=== PATIENT | male | born 1955 | race Caucasian/White ===

== ENCOUNTER → 2017-03-02 | Outpatient (REF) | payer BC ==
[2017-03-04 00:06] LABS: Lyme Disease IgG/IgM Antibodie <0.91 ISR (0.00-0.90); Lyme Disease IgM Ab Quantitati <0.80 index (0.00-0.79)
== END ==
LOC: M LAB REF 13:37
PROVIDERS: ATTEND Internal Medicine
DX: M25.50 Pain in unspecified joint (principal)

== ENCOUNTER 2017-03-21 11:43 | Outpatient (CLI) | payer BC ==
[~2017-03-21] VITALS: Ht 172.7 cm; Wt 74.8 kg
[2017-03-21] MEDS ORDERED: NS 1,000 ML IV ONE (12:00)
[2017-03-21] MEDS ORDERED: LIDOCAINE 2% INJ 100 MG/5 ML SDV (FOR ANES.) As Ordered ONE (12:37)
[2017-03-21] MEDS ORDERED: PROPOFOL 500 MG/50 ML VIAL As Ordered ONE (12:38)
[2017-03-21] MEDS ORDERED: PROPOFOL 200 MG/20 ML VIAL As Ordered ONE ×2 (12:38→13:39)
--- NOTE | 2017-03-21 13:26 | ROOR ---
Patient Name: Avinash Rucker Procedure Date: 03/21/2017 12:37 PM Date of : 1955 Age: 62 Room: [facility] Gender: Male Note Status: Finalized Procedure: Total Colonoscopy to Cecum + Cold + Hot Snare Polypectomy + Hemoclips Indications: Screening for colorectal malignant neoplasm Providers: Elmer Carr MD Referring MD: Carmela Ng DO Requesting Provider: Medicines: Monitored Anesthesia Care Complications: No immediate complications. Procedure: Pre-Anesthesia Assessment: - The heart rate, respiratory rate, oxygen saturations, blood pressure, adequacy of pulmonary ventilation, and response to care were monitored throughout the procedure. The Colonoscope was introduced through the anus and advanced to the cecum, identified by appendiceal orifice and ileocecal valve. The colonoscopy was performed without difficulty. The patient tolerated the procedure well. The quality of the bowel preparation was good. Findings: The perianal and digital rectal examinations were normal. Non-bleeding internal hemorrhoids were found during retroflexion. The hemorrhoids were small and Grade I (internal hemorrhoids that do not prolapse). Multiple small and large-mouthed diverticula were found in the recto-sigmoid colon, sigmoid colon and descending colon. A large polyp was found at 15 cm proximal to the anus. The polyp was pedunculated. The polyp was removed with a hot snare. Resection and retrieval were complete. To prevent bleeding after the polypectomy, two hemostatic clips were successfully placed (MR conditional). There was no bleeding at the end of the procedure. A medium polyp was found at 20 cm proximal to the anus. The polyp was sessile. The polyp was removed with a cold snare. Resection and retrieval were complete. To prevent bleeding after the polypectomy, one hemostatic clip was successfully placed (MR conditional). There was no bleeding at the end of the procedure. A medium polyp was found at 40 cm proximal to the anus. The polyp was sessile. The polyp was removed with a cold snare. Resection and retrieval were complete. Multiple sessile polyps were found in the transverse colon. The polyps were small in size. These polyps were removed with a cold snare. Resection and retrieval were complete. A small polyp was found in the mid ascending colon. The polyp was sessile. The polyp was removed with a cold snare. Resection and retrieval were complete. The exam was otherwise without abnormality on direct and retroflexion views. Impression: - Non-bleeding internal hemorrhoids. - Diverticulosis in the recto-sigmoid colon, in the sigmoid colon and in the descending colon. - One large polyp at 15 cm proximal to the anus, removed with a hot snare. Resected and retrieved. Clips (MR conditional) were placed. - One medium polyp at 20 cm proximal to the anus, removed with a cold snare. Resected and retrieved. Clip (MR conditional) was placed. - One medium polyp at 40 cm proximal to the anus, removed with a cold snare. Resected and retrieved. - Multiple small polyps in the transverse colon, removed with a cold snare. Resected and retrieved. - One small polyp in the mid ascending colon, removed with a cold snare. Resected and retrieved. - The examination was otherwise normal on direct and retroflexion views. - The exam was otherwise normal to the cecum. Recommendation: - Patient has a contact number available for emergencies. The signs and symptoms of potential delayed complications were discussed with the patient. Return to normal activities tomorrow. Written discharge instructions were provided to the patient. - High fiber diet. - Continue present medications. - Await pathology results. - Telephone GI clinic for pathology results in 1 week. - Repeat colonoscopy in 3 years for surveillance based on pathology results. - Return to referring physician. - The findings and recommendations were discussed with the patient's family. Elmer Carr MD Elmer Carr MD 03/21/2017 1:25:46 PM This report has been signed electronically. Number of Addenda: 0 Note Initiated On: 03/21/2017 12:37 PM Estimated Blood Loss: Estimated blood loss: none.
[2017-03-21 13:45] VITALS: BP 143/88
== END 2017-03-21 13:57 | disposition home or self-care (01) ==
LOC: M OPP 11:43
PROVIDERS: ATTEND Internal Medicine Gastroenterology
DX: Z12.11 Encounter for screening for malignant neoplasm of colon (principal); D12.2 Benign neoplasm of ascending colon; D12.3 Benign neoplasm of transverse colon; K57.30 Diverticulosis of large intestine without perforation or abscess without bleeding; K64.0 First degree hemorrhoids; Z87.39 Personal history of other diseases of the musculoskeletal system and connective tissue; Z87.891 Personal history of nicotine dependence

== ENCOUNTER → 2017-09-14 | Outpatient (REF) | payer BC ==
[2017-09-15 14:10] LABS: TESTOSTERONE FREE (DIRECT) 11.2 pg/mL (6.6-18.1)
== END ==
LOC: M LAB REF 13:39
DX: N52.9 Male erectile dysfunction, unspecified (principal)
CPT/HCPCS: 84403

== ENCOUNTER 2018-08-05 06:59 | Day surgery (SDC) | payer BC ==
[~2018-08-05] VITALS: Ht 172.7 cm; Wt 76.7 kg
[~2018-08-05 06:59] MED LIST: LOSA25TA14 PO; NS 1,000 ML IV ONE
[2018-08-05] MEDS ORDERED: PROPOFOL 200 MG/20 ML VIAL As Ordered ONE (07:03)
--- NOTE | 2018-08-05 08:06 | ROOR ---
Patient Name: Avinash Rucker Procedure Date: 08/05/2018 7:35 AM Date of : 1955 Age: 63 Room: [facility] Gender: Male Note Status: Finalized Procedure: Total Colonoscopy to Cecum + Cold Snare Polypectomy Indications: Follow-up for history of colon polyps of uncertain behavior Providers: Elmer Carr MD Referring MD: Carmela Ng DO Requesting Provider: Medicines: Monitored Anesthesia Care Complications: No immediate complications. Procedure: Pre-Anesthesia Assessment: - The heart rate, respiratory rate, oxygen saturations, blood pressure, adequacy of pulmonary ventilation, and response to care were monitored throughout the procedure. The Colonoscope was introduced through the anus and advanced to the cecum, identified by appendiceal orifice and ileocecal valve. The colonoscopy was performed without difficulty. The patient tolerated the procedure well. The quality of the bowel preparation was excellent. Findings: The perianal and digital rectal examinations were normal. Non-bleeding internal hemorrhoids were found during retroflexion. The hemorrhoids were small and Grade I (internal hemorrhoids that do not prolapse). A small polyp was found at 60 cm proximal to the anus. The polyp was sessile. The polyp was removed with a cold snare. Resection and retrieval were complete. Scattered small-mouthed diverticula were found in the recto-sigmoid colon, sigmoid colon and descending colon. The exam was otherwise without abnormality on direct and retroflexion views. Impression: - Non-bleeding internal hemorrhoids. - One small polyp at 60 cm proximal to the anus, removed with a cold snare. Resected and retrieved. - Diverticulosis in the recto-sigmoid colon, in the sigmoid colon and in the descending colon. - The examination was otherwise normal on direct and retroflexion views. - The exam was otherwise normal to the cecum. Recommendation: - Patient has a contact number available for emergencies. The signs and symptoms of potential delayed complications were discussed with the patient. Return to normal activities tomorrow. Written discharge instructions were provided to the patient. - High fiber diet. - Discharge patient to home. - Continue present medications. - Await pathology results. - Telephone GI clinic for pathology results in 1 week. - Repeat colonoscopy in 5 years for surveillance based on pathology results. - Return to referring physician. - The findings and recommendations were discussed with the patient's family. Elmer Carr MD Elmer Carr MD 08/05/2018 8:06:11 AM This report has been signed electronically. Number of Addenda: 0 Note Initiated On: 08/05/2018 7:35 AM Estimated Blood Loss: Estimated blood loss: none.
[2018-08-05 08:20] VITALS: BP 144/88
== END 2018-08-05 08:31 | disposition home or self-care (01) ==
LOC: M OPP 06:59
PROVIDERS: ATTEND Internal Medicine Gastroenterology
DX: Z86.010 Personal history of colon polyps (principal); D37.4 Neoplasm of uncertain behavior of colon; K64.0 First degree hemorrhoids; K57.30 Diverticulosis of large intestine without perforation or abscess without bleeding; D12.6 Benign neoplasm of colon, unspecified; F17.220 Nicotine dependence, chewing tobacco, uncomplicated; Z79.899 Other long term (current) drug therapy

== ENCOUNTER → 2020-12-03 | Outpatient (CLI) | payer BC ==
[~2020-12-03] MED LIST changes: -NS 1,000 ML IV ONE; +PROHANCE 279.3MG/ML 15ML VIAL As Ordered ONE
--- NOTE | 2020-12-03 10:25 | REP ---
INDICATION: PANCREATIC CYST. COMPARISON: 06/03/2019. TECHNIQUE: Multiple sequences obtained in the axial coronal planes prior to and following the intravenous administration of 15 mL ProHance. FINDINGS: There is a stable cyst in the body of the pancreas 1.3 cm in diameter, with no internal enhancement. Once again there are multiple innumerable tiny punctate cystic structures throughout the pancreas. No new dominant cystic lesion is seen. There is no pancreatic duct dilatation. No abnormality is seen in the visualized liver. Once again there is a cluster of tiny cystic structures in the fundus of the gallbladder likely representing focal adenomyomatosis. This is unchanged. No filling defect is seen in the gallbladder lumen. There is no intrahepatic or extrahepatic biliary dilatation. Common bile duct has maximum diameter 7 mm, at the upper limits of normal. The visualized spleen is unremarkable. The adrenal glands are normal. Subcentimeter cyst is seen in the upper pole the right kidney. There is no adenopathy or free fluid in the abdomen. IMPRESSION: There is a stable 1.3 cm cyst in the body of the pancreas compared to the prior study. No new pancreatic lesion. Recommend follow-up MRI in 1 year. <Electronically signed by Andrew Pugh > 12/03/20 1025
== END ==
LOC: M RAD 08:56
PROVIDERS: ATTEND Internal Medicine
DX: K86.2 Cyst of pancreas (principal)
CPT/HCPCS: 74183; A9576

== ENCOUNTER → 2021-02-17 | Outpatient (REF) | payer BC ==
[~2021-02-17] MED LIST changes: -PROHANCE 279.3MG/ML 15ML VIAL As Ordered ONE
== END ==
LOC: M LAB REF 18:28
PROVIDERS: ATTEND Physician Assistant
DX: D23.39 Other benign neoplasm of skin of other parts of face (principal)

== ENCOUNTER → 2021-08-23 | Outpatient (REF) | payer BC ==
[~2021-08-23] MED LIST changes: +LOSA25TA13 PO; -LOSA25TA14 PO
== END ==
LOC: M LAB REF 16:25
PROVIDERS: ATTEND Internal Medicine
DX: R23.1 Pallor (principal)

== ENCOUNTER → 2021-12-20 | Outpatient (CLI) | payer BC | LOC: M WUC 13:02 | PROVIDERS: ATTEND Physician Assistant | DX: M79.672 Pain in left foot (principal) ==

== ENCOUNTER → 2024-02-01 | Outpatient (REF) | payer MEDICARE ==
[2024-02-01 17:13] LABS: URIC ACID 7.1 MG/DL (3.7-9.2)
== END ==
LOC: M LAB REF 16:17
PROVIDERS: ATTEND Internal Medicine
DX: M10.9 Gout, unspecified (principal); K86.2 Cyst of pancreas

== ENCOUNTER → 2024-02-18 | Outpatient (CLI) | payer MEDICARE ==
[~2024-02-18] MED LIST changes: +PROHANCE 279.3MG/ML 15ML VIAL ONE
== END ==
LOC: M PLAIMG 13:04
PROVIDERS: ATTEND Internal Medicine
DX: K86.2 Cyst of pancreas (principal)
CPT/HCPCS: 74183; A9576

== ENCOUNTER → 2024-03-05 | Day surgery (SDC) | payer MEDICARE ==
[~2024-03-05] VITALS: Ht 172.7 cm; Wt 82.2 kg
[~2024-03-05] MED LIST changes: +ALLO100T PO; +ATOR1TAB21 PO; +LIDOCAINE 2% 100MG/5ML SDV (FOR ANES.) As Ordered ONE; -PROHANCE 279.3MG/ML 15ML VIAL ONE; +TELM1TAB33 PO; +fentaNYL 100 MCG/2 ML INJECTION As Ordered ONE; +propofoL 200 MG/20 ML VIAL As Ordered ONE
[2024-03-05] MEDS: NS 1,000 ML IV ONE (10:09)
[2024-03-05 11:24] VITALS: TEMP 98.8
[2024-03-05 11:55] VITALS: BP 139/85; O2SAT 99
== END | disposition home or self-care (01) ==
LOC: M OPP 09:42
PROVIDERS: ATTEND Internal Medicine Gastroenterology
DX: Z86.010 Personal history of colon polyps (principal); D12.3 Benign neoplasm of transverse colon; K63.5 Polyp of colon; K64.0 First degree hemorrhoids; K57.30 Diverticulosis of large intestine without perforation or abscess without bleeding; Z79.02 Long term (current) use of antithrombotics/antiplatelets; Z79.899 Other long term (current) drug therapy
CPT/HCPCS: 45380; 88305; J3010

== ENCOUNTER → 2024-09-19 | Outpatient (CLI) | payer MEDICARE ==
[~2024-09-19] MED LIST changes: -LIDOCAINE 2% 100MG/5ML SDV (FOR ANES.) As Ordered ONE; -fentaNYL 100 MCG/2 ML INJECTION As Ordered ONE; -propofoL 200 MG/20 ML VIAL As Ordered ONE
== END ==
LOC: M RAD 12:19
PROVIDERS: ATTEND Internal Medicine
DX: I65.29 Occlusion and stenosis of unspecified carotid artery (principal)

== ENCOUNTER → 2024-11-24 | Outpatient (CLI) | payer MEDICARE | LOC: M CARPUL 09:45 | PROVIDERS: ATTEND Internal Medicine | DX: R06.02 Shortness of breath (principal) ==